=== PATIENT | male | born 1980 | race Caucasian/White ===

== ENCOUNTER → 2017-05-11 | Outpatient (REF) ==
[~2017-05-11] MED LIST: IBUPROFEN
--- NOTE | 2017-05-11 11:34 | Diagnostic Imaging Report ---
PA and lateral views of the chest Indication: Positive TB skin test Findings: The lungs are clear. The heart size is normal. There is no effusion or pneumothorax The mediastinum and marlen appear unremarkable. Impression: Unremarkable study. Dictated by: Dictated on workstation # [id number]
== END | disposition home or self-care (01) ==
LOC: OCC 11:06
PROVIDERS: ATTEND Nurse Practitioner Family
CPT/HCPCS: 71020